=== PATIENT | male | born 2000 | race Caucasian/White ===

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

== ENCOUNTER 2023-02-20 07:00 | Outpatient (CLI) | payer OTHER, MEDICAID ==
--- NOTE | 2023-02-21 07:07 | XRAY Report ---
PROCEDURE: Finger(s) LT INDICATIONS: FINGER ANOMALY/PUNTURE TECHNIQUE: AP hand, 2 views of the fifth finger(s) acquired. COMPARISON: None. FINDINGS: Bones: No fractures or dislocations. No suspicious bony lesions. Soft tissues: No suspicious soft tissue calcifications or masses. Soft tissue irregularity at the fifth ray. IMPRESSION: No displaced fracture or radiopaque foreign body. Reviewed by: Raul Boothe on 02/20/2023 1:08 PM PDT Approved by: Raul Boothe on 02/20/2023 1:08 PM PDT Station ID: [id number]
== END 2023-02-20 23:59 | disposition home or self-care (01) ==
LOC: DI.S 07:00
PROVIDERS: ATTEND Emergency Medicine
DX: Q74.9 Unspecified congenital malformation of limb(s) (principal)